=== PATIENT | male | born 1935 | race Caucasian/White ===

== ENCOUNTER 2021-04-09 23:35 | Emergency (ER) | payer OTHER ==
[~2021-04-09] VITALS: Ht 182.9 cm; Wt 68.0 kg
[2021-04-09 23:36] VITALS: BP 112/64
[2021-04-10 00:03] LABS: BASOPHILS % (AUTO) 1 % (0-1); EOSINOPHILS % (AUTO) 1 % (1-7); LYMPHOCYTES % (AUTO) 12 % (22-44); MEAN CORPUSCULAR HEMOGLOBIN 31.1 pg (27.5-34.5); MEAN CORPUSCULAR HGB CONC 33.7 g/dL (33.2-36.2); MONOCYTES % (AUTO) 6 % (2-9); NEUTROPHILS % (AUTO) 81 % (42-75); PLATELET COUNT 200 x10^3/uL (130-400); RED BLOOD COUNT 4.26 x10^6/uL (4.38-5.82); RED CELL DISTRIBUTION WIDTH 14.5 % (9.4-14.8)
--- NOTE | 2021-04-10 00:04 | NUR ---
Family Contacts: Delia Daughter In Law Garett Son Kandace
[2021-04-10] MEDS ORDERED: SIMV10TA18 PO (00:08)
[2021-04-10] MEDS ORDERED: HYDR-3237 PO (00:08)
[2021-04-10] MEDS ORDERED: PANT40TA3 PO (00:08)
[2021-04-10] MEDS ORDERED: LISI-167 PO (00:08)
[2021-04-10 00:09] LABS: ALBUMIN 3.4 g/dL (3.4-5.0); ANION GAP 9 mmol/L (5-15); CHLORIDE 109 mmol/L (98-107); CREATININE 1.68 mg/dL (0.7-1.3)
== END 2021-04-10 02:27 | disposition home or self-care (01) ==
LOC: ED 23:59
DX: S43.101A Unspecified dislocation of right acromioclavicular joint, initial encounter (principal); W18.30XA Fall on same level, unspecified, initial encounter; Y93.89 Activity, other specified; Y92.009 Unspecified place in unspecified non-institutional (private) residence as the place of occurrence of the external cause; Y99.8 Other external cause status
CPT/HCPCS: 36415; 80048; 82040; 85025; 99284

== ENCOUNTER 2021-06-29 03:16 | Inpatient (IN) | payer MEDICARE, OTHER ==
[~2021-06-29] VITALS: Ht 170.2 cm; Wt 59.7 kg
[~2021-06-29 03:16] MED LIST: HYDR-3237 PO; LISI-167 PO; PANT40TA3 PO; SIMV10TA18 PO
--- NOTE | 2021-06-29 03:29 | NUR ---
Courtney TOSCANO and Raman TOSCANO supervised Dr. Brandt for rectal exam
[2021-06-29] MEDS ORDERED: SODIUM CHLORIDE 0.9% 1,000ML IVBOLUS ONE ×2 (03:30→05:30)
[2021-06-29] MEDS ORDERED: PANTOPRAZOLE 40 MG IV IVPush ONE (03:30)
[2021-06-29] MEDS ORDERED: PANTOPRAZOLE 80 MG in SODIUM CHLORIDE 0.9% 100 ML IV SCH (03:30)
[2021-06-29] MEDS ORDERED: SODIUM CHLORIDE FLUSH 10ML SYR IVF ONE (03:30)
[2021-06-29] MEDS ORDERED: ONDANSETRON 2MG/ML, 2ML IVPush ONE (03:30)
[2021-06-29] MEDS ORDERED: PANTOPRAZOLE 40 MG IV ONE (03:34)
[2021-06-29] MEDS ORDERED: ONDANSETRON 2MG/ML, 2ML ONE (03:34)
--- NOTE | 2021-06-29 04:10 | NUR ---
SALVATORE RAPP ([facility]) [phone] FOR UPDATES
--- NOTE | 2021-06-29 04:32 | NUR ---
NOELLE TOSCANO AND DR. NOLASCO BOTH SPOKE AND WITNESSED (SALVATORE CHURCH) APPROVAL TO DO CENTRAL LINE PLACEMENT
[2021-06-29 04:33] LABS: MEAN CORPUSCULAR HEMOGLOBIN 30.7 pg (27.5-34.5); MEAN CORPUSCULAR HGB CONC 33.1 g/dL (33.2-36.2); PLATELET COUNT 218 x10^3/uL (130-400); RED CELL DISTRIBUTION WIDTH 14.6 % (9.4-14.8)
[2021-06-29 04:46] LABS: ALANINE AMINOTRANSFERASE 15 U/L (12-78); ALBUMIN 3.1 g/dL (3.4-5.0); ANION GAP 16 mmol/L (5-15); CALCIUM 9.1 mg/dL (8.5-10.1); CHLORIDE 102 mmol/L (98-107); CREATININE 2.88 mg/dL (0.7-1.3)
[2021-06-29 04:51] LABS: ALKALINE PHOSPHATASE 123 U/L (45-117); BILIRUBIN,TOTAL 0.8 mg/dL (0.2-1.0); TOTAL PROTEIN 6.6 g/dL (6.4-8.2); TROPONIN I 0.073 ng/mL (0.000-0.045)
[2021-06-29] MEDS: NOREPINEPHRINE 8 MG in SODIUM CHLORIDE 0.9% 242 ML IV PRN ×4 (04:52→14:29)
[2021-06-29 04:55] LABS: BAND#(MANUAL) 2.59 x10^3/uL; BANDS%(MANUAL) 14 % (0-7); LYMPH#(MANUAL) 0.37 x10^3/uL (1-3.4); LYMPHS% (MANUAL) 2 % (22-44); MONOS#(MANUAL) 0.74 x10^3/uL (0.3-2.7); MONOS% (MANUAL) 4 % (2-9); SEGS% (MANUAL) 80 % (42-75)
[2021-06-29 04:56] LABS: <PLATELET ESTIMATE> ADEQUATE; <RBC MORPHOLOGY> NORMAL; LARGE PLATELETS 1+
[2021-06-29] MEDS ORDERED: DEXTROSE 50%, 50ML SYRINGE ONE (05:02)
--- NOTE | 2021-06-29 05:05 | NUR ---
DR. NOLASCO NOTIFIED ABOUT CRITICAL LOW BG - 41. d50 ORDERED FOR PATIENT
[2021-06-29] MEDS ORDERED: DEXTROSE 50%, 50ML SYRINGE IVPush ONE (05:30)
[2021-06-29] MEDS ORDERED: PIPERACILLIN/TAZO 3.375 GM in DEXTROSE 5% 50 ML IVPB ONE (05:30)
[2021-06-29] MEDS ORDERED: VANCOMYCIN PER PHARMACY MC ONE (05:30)
[2021-06-29 05:42] LABS: CLOSTRIDIUM DIFFICILE ANTIGEN NEGATIVE; CLOSTRIDIUM DIFFICILE TOXIN NEGATIVE (Negative)
[2021-06-29] MEDS ORDERED: VANCOMYCIN 1,300 MG in SODIUM CHLORIDE 0.9% 250 ML IV ONE (06:00)
[2021-06-29] MEDS ORDERED: POTASSIUM CHLORIDE 40 MEQ in D5%-0.9% NACL 1,000 ML IV ONE (06:30)
--- NOTE | 2021-06-29 06:33 | NUR ---
[facility] EMT IN ROOM SUPERVISING STRAIGHT CATH ON PATIENT
--- NOTE | 2021-06-29 07:00 | NUR ---
repeat BG 118, recheck after that was 71. Informed Karly PERKINS about BG - 71. Asked Karly if he wanted to start a dextrose drip for low BG. Karly PERKINS ordered dextrose drip for low BGs
[2021-06-29 07:13] LABS: MICROSCOPIC AUTO
[2021-06-29] MEDS ORDERED: POLYETHYLENE GLYCOL 17 GM PACKET PO PRN (08:00)
[2021-06-29] MEDS ORDERED: morphine SULFATE 10 MG/ML, 1ML IVPush PRN (08:00)
[2021-06-29] MEDS ORDERED: BISACODYL 10 MG SUPP PR PRN (08:00)
[2021-06-29] MEDS ORDERED: NOREPINEPHRINE 8 MG in SODIUM CHLORIDE 0.9% 242 ML IV PRN (08:00)
[2021-06-29] MEDS: PANTOPRAZOLE 40 MG IV IVPush SCH ×2 (08:00→19:51)
[2021-06-29] MEDS ORDERED: ONDANSETRON 2MG/ML, 2ML IVPush PRN (08:00)
[2021-06-29] MEDS ORDERED: ACETAMINOPHEN 325 MG TABLET PO PRN (08:00)
[2021-06-29 08:49] LABS: INTERNATIONAL NORMALIZED RATIO 1.06 (0.93-1.1); PROTHROMBIN TIME 11.3 Seconds (9.6-11.5)
--- NOTE | 2021-06-29 08:54 | NUR ---
Edna fuller in [facility] - 06/29/21 at 0855 by SHELTON MESSAGE KIKA FOR .
--- NOTE | 2021-06-29 08:55 | NUR ---
MESSAGE LEFT FOR
--- NOTE | 2021-06-29 08:55 | NUR ---
LATE ENTRY D/T PT CARE: REPORT FROM ARABELLA TOSCANO. THIS IS A 86 YO M DX W/ GI BLEED. PT HAS HAD FREQUENT LIQUID STOOLS THIS MORNING W/ NO EVIDENCE OF BLEED. PT IS POOR HISTORIAN D/T HX OF DEMENTIA. BP STABLE ON LEVO DRIP. RESTING ON GURNEY W/ CALL LIGHT IN REACH, SIDE RAILS UPX2, CONNECTED TO ALL MONITORING. AWAITING CCU ADMIT.
[2021-06-29] MEDS: SENNA/DOCUSATE TABLET PO SCH (09:00)
--- NOTE | 2021-06-29 09:00 | NUR ---
AWARE OF TROP.
--- NOTE | 2021-06-29 09:10 | NUR ---
SITTER REQUESTED FROM EXPLOSIVE OPERATOR SUPERVISOR. PT TAKING OFF MONITORING AND PULLING AT LINES.
--- NOTE | 2021-06-29 09:43 | NUR ---
PT W/ BM THIS MORNING. CLEANED AND MOVED TO ICU BED. VSS, KERVINN. AWAITING CCU ADMIT.
--- NOTE | 2021-06-29 10:01 | NUR ---
task RN note: zyvox not in ED pharmacy, ordered for primary RN Heidi.
--- NOTE | 2021-06-29 10:45 | NUR ---
PT REMOVED CENTRAL LINE DRESSING AND 18G LT AC PIV. REQUESTED SITTER AGAIN FROM [employer].
--- NOTE | 2021-06-29 10:46 | NUR ---
CENTRAL LINE DRESSING REPLACED. PT PLACED IN SOFT RESTRAINTS FOR PT SAFETY.
--- NOTE | 2021-06-29 10:47 | NUR ---
VERBAL ORDER FOR SOFT RESTRAINTS RECEIVED FROM .
--- NOTE | 2021-06-29 11:13 | NUR ---
REPORT TO FREDO TOSCANO.
[2021-06-29] MEDS: PIPERACILLIN/TAZO 2.25 GM in SODIUM CHLORIDE 0.9% 50 ML IVPB SCH ×2 (11:30→14:45)
[2021-06-29] MEDS: LINEZOLID PMX 600MG/300ML 300 ML IV SCH (13:20)
[2021-06-29] MEDS ORDERED: ZIPRASIDONE 20 MG INJ IM ONE (14:25)
[2021-06-29] MEDS: ZIPRASIDONE 20 MG INJ IM PRN ×2 (14:28→20:46)
[2021-06-29] MEDS: PANTOPRAZOLE 80 MG in SODIUM CHLORIDE 0.9% 100 ML IV SCH (14:28)
[2021-06-29] MEDS: D5%-0.9% NACL 1,000 ML IV SCH (14:40)
[2021-06-29 18:24] VITALS: BP 117/63
[2021-06-29 18:40] VITALS: BP 119/69
[2021-06-29 19:30] VITALS: BP 122/71
[2021-06-29 20:49] VITALS: BP 125/65
[2021-06-29 23:32] VITALS: BP 120/71
[2021-06-30] MEDS: PANTOPRAZOLE 80 MG in SODIUM CHLORIDE 0.9% 100 ML IV SCH (00:12)
[2021-06-30 00:15] VITALS: BP 113/47
[2021-06-30] MEDS: PIPERACILLIN/TAZO 2.25 GM in DEXTROSE 5% 50 ML IVPB SCH ×3 (01:42→14:21)
[2021-06-30] MEDS ORDERED: PIPERACILLIN/TAZO 2.25 GM in SODIUM CHLORIDE 0.9% 50 ML IVPB SCH (02:00)
[2021-06-30] MEDS: LINEZOLID PMX 600MG/300ML 300 ML IV SCH ×2 (03:08→15:43)
[2021-06-30 04:28] LABS: BASOPHILS % (AUTO) 0 % (0-1); EOSINOPHILS % (AUTO) 0 % (1-7); LYMPHOCYTES % (AUTO) 5 % (22-44); MEAN CORPUSCULAR HEMOGLOBIN 30.4 pg (27.5-34.5); MEAN CORPUSCULAR HGB CONC 33.2 g/dL (33.2-36.2); MEAN PLATELET VOLUME 9.5 fL (7.4-10.4); MONOCYTES % (AUTO) 9 % (2-9); NEUTROPHILS % (AUTO) 87 % (42-75); PLATELET COUNT 166 x10^3/uL (130-400); RED CELL DISTRIBUTION WIDTH 14.9 % (9.4-14.8)
[2021-06-30 04:31] LABS: ALANINE AMINOTRANSFERASE 25 U/L (12-78); ALBUMIN 2.4 g/dL (3.4-5.0); ANION GAP 6 mmol/L (5-15); CHLORIDE 116 mmol/L (98-107); CREATININE 2.71 mg/dL (0.7-1.3)
[2021-06-30 04:33] LABS: ALKALINE PHOSPHATASE 101 U/L (45-117); BILIRUBIN,TOTAL 0.8 mg/dL (0.2-1.0); TOTAL PROTEIN 5.5 g/dL (6.4-8.2)
[2021-06-30] MEDS: D5%-0.9% NACL 1,000 ML IV SCH ×2 (04:48→15:44)
[2021-06-30 07:18] VITALS: BP 130/79
[2021-06-30] MEDS: SENNA/DOCUSATE TABLET PO SCH (08:52)
[2021-06-30] MEDS: PANTOPRAZOLE 40 MG IV IVPush SCH (08:52)
[2021-06-30 12:46] VITALS: BP 137/77
[2021-06-30] MEDS: TAMSULOSIN 0.4 MG CAP.ER.24H PO SCH ×2 (15:43→21:01)
[2021-06-30] MEDS: LORazepam 2 MG/ML, 1ML IVPush PRN (23:54)
[2021-07-01 00:48] VITALS: BP 107/62
[2021-07-01] MEDS: LORazepam 2 MG/ML, 1ML IVPush PRN ×3 (05:25→23:32)
[2021-07-01 06:52] VITALS: BP 101/53
[2021-07-01] MEDS: MORPHINE SULFATE 4 MG/ML, 1ML IVPush PRN ×2 (19:45→23:32)
[2021-07-01] MEDS: TAMSULOSIN 0.4 MG CAP.ER.24H PO SCH (20:28)
[2021-07-02] MEDS: LORazepam 2 MG/ML, 1ML IVPush PRN ×4 (03:26→22:18)
[2021-07-02] MEDS: MORPHINE SULFATE 4 MG/ML, 1ML IVPush PRN ×4 (03:27→19:46)
[2021-07-02] MEDS ORDERED: ATROPINE OPHTH SOLN 1%, 5ML PO PRN (15:30)
[2021-07-02] MEDS ORDERED: SCOPOLAMINE 1MG PATCH TD PRN (15:30)
[2021-07-03] MEDS: MORPHINE SULFATE 4 MG/ML, 1ML IVPush PRN ×3 (02:00→10:47)
[2021-07-03] MEDS: LORazepam 2 MG/ML, 1ML IVPush PRN ×2 (04:09→09:43)
[2021-07-03] MEDS ORDERED: LORazepam 2 MG/ML, 1ML IVPush SCH (12:00)
[2021-07-03] MEDS ORDERED: ONDANSETRON 2MG/ML, 2ML IVPush PRN (12:00)
[2021-07-03] MEDS ORDERED: MORPHINE SULFATE 4 MG/ML, 1ML IVPush PRN (12:00)
[2021-07-03] MEDS: MORPHINE 30MG/30ML PCA.SYR IV PRN (13:04)
[2021-07-03] MEDS ORDERED: LORazepam 2 MG/ML, 1ML IVPush PRN (20:30)
[2021-07-04] MEDS: MORPHINE 30MG/30ML PCA.SYR IV PRN (13:35)
[2021-07-05] MEDS: MORPHINE 30MG/30ML PCA.SYR IV PRN ×2 (09:34→19:44)
[2021-07-06] MEDS: MORPHINE 30MG/30ML PCA.SYR IV PRN ×2 (05:35→16:09)
[2021-07-07] MEDS: MORPHINE 30MG/30ML PCA.SYR IV PRN ×3 (02:31→16:43)
[2021-07-07] MEDS ORDERED: LORazepam 2 MG/ML, 1ML IVPush PRN (08:00)
[2021-07-07] MEDS: LORazepam 2 MG/ML, 1ML IVPush SCH ×3 (08:38→21:14)
[2021-07-07] MEDS ORDERED: morphine SULFATE 100 MG in DEXTROSE 5% 90 ML IV PRN (19:30)
[2021-07-08] MEDS: LORazepam 2 MG/ML, 1ML IVPush SCH ×4 (02:40→21:34)
== END 2021-07-09 00:30 | DRG 871 ==
LOC: ED 05:32 → EDIP 09:25 → 4WST 17:49 → 4NW 07-02 12:49
PROVIDERS: ADMIT Internal Medicine; ATTEND Internal Medicine
PROC: 02HV33Z Insertion of Infusion Device into Superior Vena Cava, Percutaneous Approach (ICD-10-PCS; principal; 2021-06-29)
DX: A41.9 Sepsis, unspecified organism (principal); I21.4 Non-ST elevation (NSTEMI) myocardial infarction; N17.0 Acute kidney failure with tubular necrosis; E43 Unspecified severe protein-calorie malnutrition; R40.20 Unspecified coma; R65.21 Severe sepsis with septic shock; E87.2 Acidosis; E87.1 Hypo-osmolality and hyponatremia; Z20.822 Contact with and (suspected) exposure to COVID-19; Z68.20 Body mass index [BMI] 20.0-20.9, adult; F03.90 Unspecified dementia, unspecified severity, without behavioral disturbance, psychotic disturbance, mood disturbance, and anxiety; E78.5 Hyperlipidemia, unspecified; K21.9 Gastro-esophageal reflux disease without esophagitis; I10 Essential (primary) hypertension; Z85.46 Personal history of malignant neoplasm of prostate; K59.00 Constipation, unspecified; E16.2 Hypoglycemia, unspecified; K52.9 Noninfective gastroenteritis and colitis, unspecified; Z51.5 Encounter for palliative care; Z87.891 Personal history of nicotine dependence; E86.0 Dehydration
CPT/HCPCS: 36415; 71045; 74176; 80053; 81001; 82533; 82607; 82962; 83605; 83735; 84100; 84145; 84443; 84484; 85018; 85025; 85610; 85730; 86850; 86900; 87040; 87086; 87324; 89055; 93005; 93308; 96374; 96375; 99285; G0378; J2020; J2270; J2405; J2543; J3370; J3480; J3486; J7042; C9113; J2060; J7030; J7050